=== PATIENT | female | born 1990 | race Caucasian/White ===

== ENCOUNTER 2017-03-21 00:45 | Observation (INO) | payer MEDICAID ==
[~2017-03-21] VITALS: Ht 160 cm; Wt 81.6 kg
[2017-03-21] MEDS ORDERED: PREN-55 PO (01:08)
[2017-03-21] MEDS ORDERED: ACETAMINOPHEN 325MG TABLET PO NR (01:30)
[2017-03-21] MEDS ORDERED: TERBUTALINE SULFATE 1MG/ML VIAL SUBCUT PRN (01:30)
[2017-03-21] MEDS: LACTATED RINGERS 1,000 ML IV SCH ×2 (01:44→03:17)
== END 2017-03-21 04:50 | disposition home or self-care (01) ==
LOC: L&D 00:45
PROVIDERS: ADMIT Obstetrics & Gynecology; ATTEND Obstetrics & Gynecology
DX: O46.93 Antepartum hemorrhage, unspecified, third trimester (principal); R51 Headache; O26.893 Other specified pregnancy related conditions, third trimester; Z3A.32 32 weeks gestation of pregnancy
CPT/HCPCS: 76805; 76818; 96360; 96361; 96372; 99281; G0378; J3105; J7120

== ENCOUNTER 2017-03-29 22:42 | Observation (INO) | payer MEDICAID ==
[~2017-03-29] VITALS: Ht 160 cm; Wt 84.8 kg
[~2017-03-29 22:42] MED LIST: PREN-55 PO
[2017-03-29] MEDS ORDERED: ACETAMINOPHEN 325MG TABLET PO NR (23:35)
== END 2017-03-30 00:15 | disposition home or self-care (01) ==
LOC: L&D 22:42
PROVIDERS: ADMIT Obstetrics & Gynecology; ATTEND Obstetrics & Gynecology
DX: O26.893 Other specified pregnancy related conditions, third trimester (principal); R51 Headache; R10.9 Unspecified abdominal pain; O10.913 Unspecified pre-existing hypertension complicating pregnancy, third trimester; Z3A.34 34 weeks gestation of pregnancy
CPT/HCPCS: 99281; G0378

== ENCOUNTER 2017-04-26 22:25 | Emergency (ER) | payer MEDICAID ==
[~2017-04-26] VITALS: Ht 165.1 cm; Wt 73.0 kg
[~2017-04-26 22:25] MED LIST changes: +ACET-2708 PO; +METH250T11 PO
[2017-04-27] MEDS ORDERED: SODIUM CHLORIDE 0.9% 1,000 ML IV ONE (01:39)
[2017-04-27 02:13] LABS: CHLORIDE 108 mEq/L (98-107)
[2017-04-27 02:23] LABS: B-HCG QUANTITATIVE 28 mIU/mL (<3); BASOPHILS % 0.4 % (0.0-2.0); CARBON DIOXIDE 23 mEq/L (21-32); EOSINOPHILS % 0.4 % (0.0-5.0); HEMATOCRIT. 28.7 % (36.0-48.0); HEMOGLOBIN. 9.1 g/dL (12.0-16.0); LYMPHOCYTES % 12.6 % (20.0-50.0); MEAN CORPUSCULAR HEMOGLOBIN 24.5 pg (28.0-32.0); MEAN CORPUSCULAR VOLUME 77.5 fL (81.0-99.0); MEAN PLATELET VOLUME 10.7 fl (7.4-10.4); MONOCYTES % 4.6 % (2.0-8.0); PLATELET 167 x1000/uL (130-400); RED CELL DISTRIBUTION WIDTH 13.9 % (11.6-14.6)
[2017-04-27 03:50] VITALS: BP 110/70
== END 2017-04-27 04:06 | disposition home or self-care (01) ==
LOC: ER 22:25
DX: N93.9 Abnormal uterine and vaginal bleeding, unspecified (principal)
CPT/HCPCS: 36415; 80048; 84702; 85025; 86850; 86900; 86901; 96360; 99284; J7030; Z7610

== ENCOUNTER 2017-06-18 23:59 | Emergency (ER) | payer MEDICAID ==
[~2017-06-18] VITALS: Ht 165.1 cm; Wt 67.0 kg
[2017-06-19] MEDS ORDERED: FAMOTIDINE 20MG/2ML VIAL IV STA (00:45)
[2017-06-19] MEDS ORDERED: MORPHINE SULFATE 4 MG/ML CPJ (NOT FOR IM USE) IV STA (00:45)
[2017-06-19] MEDS ORDERED: ONDANSETRON HCL 4MG/2ML VIAL IV STA ×2 (00:45→03:49)
[2017-06-19] MEDS ORDERED: SODIUM CHLORIDE 0.9% 1,000 ML IV ONE (00:45)
[2017-06-19 01:12] LABS: BASOPHILS % 0.3 % (0.0-2.0); EOSINOPHILS % 0.3 % (0.0-5.0); HEMATOCRIT. 30.8 % (36.0-48.0); HEMOGLOBIN. 9.6 g/dL (12.0-16.0); LYMPHOCYTES % 8.4 % (20.0-50.0); MEAN CORPUSCULAR HEMOGLOBIN 21.3 pg (28.0-32.0); MEAN CORPUSCULAR VOLUME 68.4 fL (81.0-99.0); MEAN PLATELET VOLUME 9.6 fl (7.4-10.4); MONOCYTES % 4.3 % (2.0-8.0); NEUTROPHILS % 86.7 % (40.0-76.0); PLATELET 133 x1000/uL (130-400); RED CELL DISTRIBUTION WIDTH 16.7 % (11.6-14.6)
[2017-06-19 01:18] LABS: CHLORIDE 103 mEq/L (98-107)
[2017-06-19 01:19] LABS: PROTHROMBIN TIME 10.6 sec (9.4-11.6)
[2017-06-19 01:25] LABS: HCG SCREEN NEGATIVE
[2017-06-19 01:27] LABS: CARBON DIOXIDE 27 mEq/L (21-32); ETHANOL BLOOD < 10 mg/dL
[2017-06-19 01:42] LABS: CLARITY URINE TURBID (CLEAR); COLOR URINE YELLOW (YELLOW); KETONES URINE 1+ (NEGATIVE); LEUKOCYTE ESTERASE URINE 2+ (NEGATIVE); NITRITE URINE NEGATIVE (NEGATIVE); OCCULT BLOOD URINE NEGATIVE (NEGATIVE); PROTEIN URINE NEGATIVE (NEGATIVE); SPECIFIC GRAVITY URINE 1.016 (1.005-1.030)
[2017-06-19] MEDS ORDERED: POTASSIUM BICARB/CIT ACID 25 MEQ TABLET.EFF PO SCH (02:00)
[2017-06-19] MEDS ORDERED: CEFTRIAXONE 1 G PREMIX 50 ML IV SCH (02:00)
[2017-06-19 02:12] LABS: *AMPHETAMINES SCREEN URINE NEGATIVE (NEGATIVE); *BARBITURATES SCREEN URINE NEGATIVE (NEGATIVE); *BENZODIAZEPINES SCREEN URINE NEGATIVE (NEGATIVE); *COCAINE SCREEN URINE NEGATIVE (NEGATIVE); METHADONE URINE SCREEN NEGATIVE (NEGATIVE); PHENCYCLIDINE URINE SCREEN NEGATIVE (NEGATIVE)
[2017-06-19 02:14] LABS: CANNABINOID URINE SCREEN NEGATIVE (NEGATIVE); OPIATES URINE SCREEN PRESUMTIVE POSITIVE (NEGATIVE)
[2017-06-19 04:00] VITALS: BP 155/90
[2017-06-19] MEDS ORDERED: METRONIDAZOLE 500 MG PREMIX 100 ML IV ONE (04:00)
== END 2017-06-19 04:34 | disposition left against medical advice (07) ==
LOC: ER 23:59
DX: K81.0 Acute cholecystitis (principal); N39.0 Urinary tract infection, site not specified; E87.6 Hypokalemia; F17.210 Nicotine dependence, cigarettes, uncomplicated
CPT/HCPCS: 36415; 74176; 76700; 80053; 80305; 81001; 83605; 83690; 84703; 85025; 85610; 87086; 96361; 96365; 96366; 96375; 99285; G0482; J0696; J2270; J2405; J3490; J7030; Z7610

== ENCOUNTER 2017-09-05 12:11 | Emergency (ER) | payer MEDICAID ==
[~2017-09-05] VITALS: Ht 160 cm; Wt 70.0 kg
[2017-09-05] MEDS ORDERED: KETOROLAC 30MG/ML VIAL IM ONE (14:30)
[2017-09-05 14:40] VITALS: BP 132/84
[2017-09-05] MEDS ORDERED: SULFAMETHOXAZOLE/TRIMETHOPRIM 800/160MG TABLET PO ONE (14:45)
[2017-09-05] MEDS ORDERED: CEFTRIAXONE SODIUM 250 MG/VIAL IM ONE (14:45)
== END 2017-09-05 16:00 | disposition home or self-care (01) ==
LOC: ER 12:57
DX: L03.011 Cellulitis of right finger (principal); I10 Essential (primary) hypertension; F17.210 Nicotine dependence, cigarettes, uncomplicated; Z90.49 Acquired absence of other specified parts of digestive tract
CPT/HCPCS: 73130; 81025; 96372; 99284; J0696; J1885

== ENCOUNTER 2017-10-16 14:02 | Emergency (ER) | payer MEDICAID ==
[~2017-10-16] VITALS: Ht 160 cm; Wt 69.8 kg
[2017-10-16 16:00] VITALS: BP 163/103
[2017-10-16 16:35] LABS: CLARITY URINE CLOUDY (CLEAR); COLOR URINE YELLOW (YELLOW); KETONES URINE TRACE (NEGATIVE); LEUKOCYTE ESTERASE URINE NEGATIVE (NEGATIVE); NITRITE URINE NEGATIVE (NEGATIVE); OCCULT BLOOD URINE NEGATIVE (NEGATIVE); PROTEIN URINE 1+ (NEGATIVE); SPECIFIC GRAVITY URINE 1.031 (1.005-1.030)
[2017-10-16 18:24] LABS: CHLORIDE 107 mEq/L (98-107)
[2017-10-16 18:29] LABS: CARBON DIOXIDE 27 mEq/L (21-32)
[2017-10-16] MEDS ORDERED: LIDOCAINE HCL 1% 20ML VIAL (Pyxis) INJ INFIL ONE (18:30)
[2017-10-16] MEDS ORDERED: CEFTRIAXONE SODIUM 250 MG/VIAL IM ONE (18:30)
[2017-10-16 18:31] LABS: BASOPHILS % 0.5 % (0.0-2.0); EOSINOPHILS % 1.7 % (0.0-5.0); HEMATOCRIT. 36.2 % (36.0-48.0); HEMOGLOBIN. 11.4 g/dL (12.0-16.0); LYMPHOCYTES % 30.8 % (20.0-50.0); MEAN CORPUSCULAR HEMOGLOBIN 21.9 pg (28.0-32.0); MEAN CORPUSCULAR VOLUME 69.7 fL (81.0-99.0); MEAN PLATELET VOLUME 10.3 fl (7.4-10.4); MONOCYTES % 8.5 % (2.0-8.0); NEUTROPHILS % 58.5 % (40.0-76.0); PLATELET 140 x1000/uL (130-400); RED BLOOD CELL COUNT 5.19 mill/uL (4.2-5.4); RED CELL DISTRIBUTION WIDTH 19.9 % (11.6-14.6)
[2017-10-16 19:31] LABS: PLATELET ESTIMATE NORMAL
[2017-10-20 04:16] LABS: CHLAMYDIA TRACHOMATIS NAA Negative (Negative); NEISSERIA GONORRHOEAE NAA Negative (Negative)
== END 2017-10-16 19:25 | disposition home or self-care (01) ==
LOC: ER 15:24
DX: I10 Essential (primary) hypertension (principal); R10.2 Pelvic and perineal pain; M54.5 Low back pain; F17.210 Nicotine dependence, cigarettes, uncomplicated; F12.10 Cannabis abuse, uncomplicated; Z90.49 Acquired absence of other specified parts of digestive tract
CPT/HCPCS: 36415; 74176; 80053; 81001; 81025; 83690; 85025; 87210; 87491; 87591; 96372; 99285; J0696; J3490

== ENCOUNTER 2019-06-29 13:29 | Emergency (ER) | payer SELFPAY ==
[~2019-06-29] VITALS: Ht 165.1 cm; Wt 75.0 kg
[~2019-06-29 13:29] MED LIST changes: -METH250T11 PO; +METH250T3 PO
[2019-06-29] MEDS ORDERED: ACETAMINOPHEN 325MG TABLET PO ONE (16:00)
[2019-06-29] MEDS ORDERED: KETOROLAC 15MG/ML VIAL IV ONE (19:15)
[2019-06-29 20:37] VITALS: BP 157/112
== END 2019-06-29 20:39 | disposition home or self-care (01) ==
LOC: ER 13:29
DX: R07.81 Pleurodynia (principal); F12.10 Cannabis abuse, uncomplicated; Z90.49 Acquired absence of other specified parts of digestive tract; Z79.899 Other long term (current) drug therapy
CPT/HCPCS: 71046; 71100; 93005; 96374; 99283; J1885

== ENCOUNTER 2020-08-07 18:56 | Emergency (ER) | payer OTHER ==
[~2020-08-07] VITALS: Ht 160 cm; Wt 66.0 kg
[~2020-08-07 18:56] MED LIST changes: +AMLO10TA80 PO; +HYDR100T26 PO; +LOSA50TA3 PO; -METH250T3 PO
[2020-08-07] MEDS ORDERED: SODIUM CHLORIDE 0.9% 1,000 ML IV ONE ×2 (19:30→23:45)
[2020-08-07] MEDS ORDERED: ACETAMINOPHEN 325MG TABLET PO ONE (19:30)
[2020-08-07 20:25] LABS: BASOPHILS % 0.5 % (0.0-2.0); EOSINOPHILS % 0.4 % (0.0-5.0); HEMATOCRIT. 31.7 % (36.0-48.0); HEMOGLOBIN. 10.2 g/dL (12.0-16.0); LYMPHOCYTES % 9.5 % (20.0-50.0); MEAN CORPUSCULAR HEMOGLOBIN 24.3 pg (28.0-32.0); MEAN CORPUSCULAR VOLUME 75.5 fL (81.0-99.0); MEAN PLATELET VOLUME 9.1 fl (7.4-10.4); MONOCYTES % 6.4 % (2.0-8.0); NEUTROPHILS % 83.2 % (40.0-76.0); PLATELET 130 x1000/uL (130-400); RED CELL DISTRIBUTION WIDTH 16.4 % (11.6-14.6)
[2020-08-07 20:30] LABS: CHLORIDE 99 mEq/L (98-107)
[2020-08-07 20:40] LABS: HCG SCREEN NEGATIVE
[2020-08-07] MEDS ORDERED: POTASSIUM CHLORIDE 20MEQ TABLET SR PO ONE (21:00)
[2020-08-07 21:18] LABS: CLARITY URINE CLOUDY (CLEAR); COLOR URINE DARK YELLOW (YELLOW); KETONES URINE 1+ (NEGATIVE); LEUKOCYTE ESTERASE URINE TRACE (NEGATIVE); NITRITE URINE NEGATIVE (NEGATIVE); OCCULT BLOOD URINE 2+ (NEGATIVE); PH URINE 5.5 (4.5-8.0); PROTEIN URINE 2+ (NEGATIVE); SPECIFIC GRAVITY URINE 1.032 (1.005-1.030)
[2020-08-07] MEDS ORDERED: KETOROLAC 15MG/ML VIAL IV ONE (21:45)
[2020-08-07] MEDS ORDERED: CEPHALEXIN 250MG CAPSULE PO ONE (22:15)
[2020-08-07] MEDS ORDERED: MEDROXYPROGESTERONE ACET 5MG TABLET PO SCH (22:15)
[2020-08-07] MEDS ORDERED: AMLODIPINE 10MG TABLET PO ONE (22:15)
[2020-08-07] MEDS ORDERED: MORPHINE SULFATE 4 MG/ML CPJ (NOT FOR IM USE) IV ONE (22:15)
[2020-08-07] MEDS ORDERED: ONDANSETRON HCL 4MG/2ML INJ IV ONE (22:15)
[2020-08-08] MEDS ORDERED: HYDROCODONE/ACETAMINOPHEN 5/325MG TABLET PO ONE (01:30)
[2020-08-08] MEDS ORDERED: IBUPROFEN 600MG TABLET PO ONE (01:30)
[2020-08-08 02:00] VITALS: BP 174/127
== END 2020-08-08 02:20 | disposition home or self-care (01) ==
LOC: ER 18:56
DX: N93.9 Abnormal uterine and vaginal bleeding, unspecified (principal); R00.0 Tachycardia, unspecified; I10 Essential (primary) hypertension; Z79.899 Other long term (current) drug therapy; Z90.49 Acquired absence of other specified parts of digestive tract; Z98.890 Other specified postprocedural states
CPT/HCPCS: 36415; 76830; 76856; 80053; 81003; 83690; 84703; 85025; 86850; 86900; 86901; 93005; 96361; 96374; 96375; 99285; J1885; J2270; J2405; J7030

== ENCOUNTER 2021-06-16 13:21 | Inpatient (IN) | payer MEDICAID, OTHER ==
[~2021-06-16] VITALS: Ht 160 cm; Wt 63.0 kg
[2021-06-16] MEDS ORDERED: CLONIDINE 0.2MG TABLET PO ONE (13:45)
[2021-06-16 13:54] LABS: EOSINOPHILS % 2.2 % (0.0-5.0); HEMATOCRIT. 41.3 % (36.0-48.0); HEMOGLOBIN. 13.7 g/dL (12.0-16.0); LYMPHOCYTES % 25.1 % (20.0-50.0); MEAN CORPUSCULAR HEMOGLOBIN 27.1 pg (28.0-32.0); MEAN CORPUSCULAR VOLUME 81.6 fL (81.0-99.0); MEAN PLATELET VOLUME 10.5 fl (7.4-10.4); MONOCYTES % 9.5 % (2.0-8.0); NEUTROPHILS % 62.2 % (40.0-76.0); PLATELET 112 x1000/uL (130-400); RED BLOOD CELL COUNT 5.06 mill/uL (4.2-5.4); RED CELL DISTRIBUTION WIDTH 15.5 % (11.6-14.6)
[2021-06-16 14:00] LABS: CHLORIDE 106 mEq/L (98-107)
[2021-06-16] MEDS ORDERED: KCL 20MEQ/100ML PREMIX 100 ML IV ONE (14:45)
[2021-06-16] MEDS ORDERED: POTASSIUM CHLORIDE 20MEQ TABLET SR PO ONE (14:45)
[2021-06-16] MEDS ORDERED: LABETALOL 5MG/ML SYR 20 MG/4 ML SYRINGE IV ONE (15:00)
[2021-06-16] MEDS ORDERED: AMLODIPINE 5MG TABLET PO NR (18:00)
[2021-06-16] MEDS ORDERED: LABETALOL HCL 100MG TABLET PO SCH (20:30)
[2021-06-16] MEDS ORDERED: LABETALOL 5MG/ML SYR 20 MG/4 ML SYRINGE IV SCH (20:30)
[2021-06-16] MEDS ORDERED: NITROGLYCERIN OINT 1GM/INCH UDPKT TD ONE (21:30)
[2021-06-16] MEDS ORDERED: ACETAMINOPHEN 500MG TABLET PO ONE (21:30)
[2021-06-17] MEDS ORDERED: DIPHENHYDRAMINE 50MG/ML VIAL IV PRN (09:30)
[2021-06-17] MEDS ORDERED: IPRATROPIUM/ALBUTEROL 0.5-3(2.5)MG/3ML NEB HHN PRN (09:30)
[2021-06-17] MEDS ORDERED: ONDANSETRON HCL 4MG/2ML INJ IV PRN (09:30)
[2021-06-17] MEDS ORDERED: ACETAMINOPHEN 325MG TABLET PO PRN (09:30)
[2021-06-17] MEDS: AMLODIPINE 10MG TABLET PO SCH (09:42)
[2021-06-17] MEDS: MORPHINE SULFATE 2 MG/ML CPJ (NOT FOR IM USE) IV PRN ×3 (09:42→21:49)
[2021-06-17] MEDS ORDERED: POTASSIUM CHLORIDE INJ 40 MEQ in DEXT 5% WATER 250 ML IV NR (10:30)
[2021-06-17] MEDS ORDERED: NALOXONE HCL 0.4MG/ML VIAL IV PRN (13:00)
[2021-06-17 14:10] VITALS: BP 171/120
[2021-06-17] MEDS: CLONIDINE 0.1MG TABLET PO PRN ×2 (15:10→21:49)
[2021-06-17 16:00] VITALS: BP 152/92
[2021-06-17 20:00] VITALS: BP 160/113
[2021-06-17] MEDS: PREDNISONE 20MG TABLET PO SCH (21:49)
[2021-06-17] MEDS ORDERED: INSULIN GLARGINE UD 100 UNITS/ML SYR SUBCUT SCH (22:00)
[2021-06-17] MEDS ORDERED: VALACYCLOVIR HCL 500MG TABLET PO SCH (22:00)
[2021-06-17] MEDS: VALACYCLOVIR HCL 500MG TABLET PO SCH (23:11)
[2021-06-18] VITALS: BP 143/103
[2021-06-18 04:00] VITALS: BP 146/93
[2021-06-18] MEDS: VALACYCLOVIR HCL 500MG TABLET PO SCH (05:10)
[2021-06-18] MEDS: MORPHINE SULFATE 2 MG/ML CPJ (NOT FOR IM USE) IV PRN (05:10)
[2021-06-18 06:27] LABS: BASOPHILS % 0.2 % (0.0-2.0); HEMOGLOBIN. 12.8 g/dL (12.0-16.0); LYMPHOCYTES % 8.8 % (20.0-50.0); MEAN CORPUSCULAR HEMOGLOBIN 26.8 pg (28.0-32.0); MEAN CORPUSCULAR VOLUME 81.8 fL (81.0-99.0); MEAN PLATELET VOLUME 9.8 fl (7.4-10.4); PLATELET 113 x1000/uL (130-400); RED BLOOD CELL COUNT 4.77 mill/uL (4.2-5.4); RED CELL DISTRIBUTION WIDTH 15.5 % (11.6-14.6)
[2021-06-18 06:34] LABS: CHLORIDE 101 mEq/L (98-107)
[2021-06-18 06:43] LABS: LDL CHOLESTEROL 134 mg/dL (5-100)
[2021-06-18 06:45] LABS: HDL CHOLESTEROL 70 mg/dL (40-59)
[2021-06-18] MEDS: PREDNISONE 20MG TABLET PO SCH (06:58)
[2021-06-18] MEDS: CLONIDINE 0.1MG TABLET PO PRN (06:58)
[2021-06-18 09:00] VITALS: BP 132/93
[2021-06-18] MEDS: AMLODIPINE 10MG TABLET PO SCH (09:25)
[2021-06-18] MEDS ORDERED: P20 MT (10:30)
[2021-06-18] MEDS ORDERED: PANT40TA51 MT (10:30)
[2021-06-18] MEDS ORDERED: VALA100044 MT (10:30)
[2021-06-18 11:35] VITALS: BP 132/93
== END 2021-06-18 12:40 | disposition home or self-care (01) | DRG 48 ==
LOC: ER 13:21 → MICUSO 19:22 → EDBEDREQTM 19:40 → EDBEDREQ 19:40 → CANBEDREQ 21:26 → 6WST 06-17 12:49
PROVIDERS: ADMIT Internal Medicine; ATTEND Internal Medicine
DX: G51.0 Bell's palsy (principal); K76.0 Fatty (change of) liver, not elsewhere classified; E87.6 Hypokalemia; I16.0 Hypertensive urgency; F17.200 Nicotine dependence, unspecified, uncomplicated; F12.90 Cannabis use, unspecified, uncomplicated; R74.01 Elevation of levels of liver transaminase levels; H93.12 Tinnitus, left ear; I10 Essential (primary) hypertension; Z90.49 Acquired absence of other specified parts of digestive tract; Z79.899 Other long term (current) drug therapy
CPT/HCPCS: 36415; 80053; 80061; 84132; 84443; 85025; 92523; 93005; 93970; 99291; C1893; J1815; J2270; J2405; J3480; J3490; J7060; J7512